=== PATIENT | female | born 1980 | race American Indian/Alaskan Native ===

== ENCOUNTER 2016-12-26 23:05 | Emergency (ER) | payer MEDICAID ==
[2016-12-27 00:31] LABS: Basophils % (Auto) 0.5 % (0.0-1.8); Eosinophils % (Auto) 2.8 % (0.0-4.3); Hematocrit 42.8 % (30.3-42.9); Hemoglobin 13.5 gm/dl (10.1-14.3); Mean Corpuscular HGB Conc 32 % (30-34); Platelet Count 264 K/mm3 (140-440); Red Blood Count 6.24 M/mm3 (3.65-5.03); Red Cell Distribution Width 17.8 % (13.2-15.2); White Blood Count 9.4 K/mm3 (4.5-11.0)
[2016-12-27 00:33] LABS: Mean Corpuscular Hemoglobin 22 pg (28-32); Mean Corpuscular Volume 69 fl (79-97)
[2016-12-27 00:47] LABS: Anion Gap 19 mmol/L; BUN/Creatinine Ratio 12.22; Blood Urea Nitrogen 11 mg/dL (7-17); Calcium 9.3 mg/dL (8.4-10.2); Carbon Dioxide 22 mmol/L (22-30); Glucose 93 mg/dL (65-100); Potassium 4.7 mmol/L (3.6-5.0); Sodium 138 mmol/L (137-145)
[2016-12-27 01:29] LABS: Urine Drugs of Abuse Note Disclamer
--- NOTE | 2016-12-27 01:46 | Emergency Department Report ---
ED Psych HPI - General Chief Complaint: Psych Stated Complaint: POSS OVERDOSE/SUICIDAL/MH EVAL Time Seen by Provider: 12/27/16 01:38 Source: patient Mode of arrival: Ambulatory - History of Present Illness Initial Comments: 36-year-old female with history of depression not on any medication presenting today because of suicidal ideation. Patient's states that she took a Xanax, per EMS 2x1 mg pills prior to arrival. She took her father's medication, she is not prescribed any medications. States that she doesn't want to wake up ever again. History of suicidal attempts. States she took no other medications. Denies any alcohol or drug use. - Related Data Previous Rx's Medication Instructions Recorded Last Taken Type Ferrous Sulfate [Feosol 325 MG tab] 325 mg PO BID #60 tablet 03/31/16 Unknown Rx Ibuprofen [Motrin 800 MG tab] 800 mg PO Q6H PRN #30 tablet 03/31/16 Unknown Rx oxyCODONE /ACETAMINOPHEN [Percocet 1 - 2 tab PO Q4H PRN #30 tablet 03/31/16 Unknown Rx 5/325 mg] Allergies Allergy/AdvReac Type Severity Reaction Status Date / Time bupropion HCl Allergy Unknown Verified 06/16/15 01:18 [From Wellbutrin] cephalexin monohydrate Allergy Hives Verified 01/23/14 21:49 [From Keflex] tramadol HCl [From Ultram] Allergy Rash Verified 01/23/14 21:50 ED Review of Systems ROS: Stated complaint: POSS OVERDOSE/SUICIDAL/MH EVAL Other details as noted in HPI Comment: All other systems reviewed and negative Constitutional: denies: chills, fever Cardiovascular: denies: chest pain Gastrointestinal: denies: abdominal pain, vomiting Genitourinary: denies: dysuria Skin: denies: rash Neurological: denies: headache Psychiatric: anxiety, depression, suicidal thoughts. denies: auditory hallucinations, visual hallucinations ED Past Medical Hx - Past Medical History Previous Medical History?: Yes Hx Hypertension: No Hx Congestive Heart Failure: No Hx Diabetes: No Hx Deep Vein Thrombosis: No Hx Renal Disease: No Hx Sickle Cell Disease: No Hx Seizures: No Hx Psychiatric Treatment: Yes (PTSD) Hx Asthma: Yes (has not used inhaler in a year) Hx COPD: No Hx HIV: No - Surgical History Past Surgical History?: Yes Additional Surgical History: ACL repair Right knee. Hand surgeries. - Social History Smoking Status: Unknown if ever smoked - Medications Home Medications: Home Medications Medication Instructions Recorded Confirmed Last Taken Type Ferrous Sulfate [Feosol 325 MG tab] 325 mg PO BID #60 tablet 03/31/16 Unknown Rx Ibuprofen [Motrin 800 MG tab] 800 mg PO Q6H PRN #30 tablet 03/31/16 Unknown Rx oxyCODONE /ACETAMINOPHEN [Percocet 1 - 2 tab PO Q4H PRN #30 tablet 03/31/16 Unknown Rx 5/325 mg] ED Physical Exam - General Limitations: No Limitations General appearance: alert - Head Head exam: Present: atraumatic - Eye Eye exam: Present: normal appearance - ENT ENT exam: Present: normal exam - Respiratory Respiratory exam: Present: normal lung sounds bilaterally. Absent: respiratory distress - Cardiovascular Cardiovascular Exam: Present: regular rate, normal rhythm - GI/Abdominal GI/Abdominal exam: Present: soft. Absent: distended, tenderness - Extremities Exam Extremities exam: Present: normal inspection - Neurological Exam Neurological exam: Present: alert, oriented X3 - Psychiatric Psychiatric exam: Present: normal affect - Skin Skin exam: Present: intact ED Course Vital Signs 12/27/16 12/27/16 00:44 01:44 Temperature 98.3 F Pulse Rate 86 Respiratory 14 14 Rate Blood Pressure 119/70 [Left] O2 Sat by Pulse 99 98 Oximetry ED Medical Decision Making - Lab Data Result diagrams: 12/27/16 00:08 12/27/16 00:08 - Medical Decision Making Patient is suicidal, we'll place on 1013, Xanax quantity was minimal and she has no respiratory depression and is awake and alert at this time. Labs unremarkable, ua negative, upreg negative Critical care attestation.: If time is entered above; I have spent that time in minutes in the direct care of this critically ill patient, excluding procedure time. ED Disposition Clinical Impression: Suicidal ideation Disposition: DC/TX PSY HOSP/PSY UNIT Is pt being admited?: No Does the pt Need Aspirin: No Condition: Stable Referrals: PRIMARY CARE, [Primary Care Provider] - 3-5 Days Time of Disposition: 02:01
[2016-12-27 02:14] LABS: Bacteria,Urine 1+ /HPF (Negative); Bilirubin,Urine NEG (Negative); Blood,Urine SM (Negative); Ketones,Urine 20 mg/dL (Negative); Leukocyte Esterase,Urine NEG (Negative); Mucus,Urine 2+ /HPF; Nitrite,Urine NEG (Negative); Urobilinogen,Urine < 2.0 mg/dL (<2.0)
--- NOTE | 2016-12-27 12:54 | Consultation ---
History of Present Illness - Reason for Consult Consult date: 12/27/16 Reason for consult: psychiatric evaluation - Chief Complaint Chief complaint: "I don't want to be here" Mrs. Zelaya is a 36 year-old white female seen the emergency department for psychiatric evaluation. She was brought to the emergency department by the police after she reported to family that she did not want to be here. She reports ongoing depression and anxiety. She reports having panic attacks almost daily as well as flashbacks from her child's . She states her anxiety specifically that she does not leave the house. 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 The precipitating event to this emergency department visit was an argument with her child's father. She reports decreased appetite, insomnia, hopeless helpless ideations, and severe anxiety. She was evaluated by psychiatry when she participated in vocational rehabilitation. She was so she has bipolar disorder type II. She has also been diagnosed with posttraumatic stress disorder. She reports a long history of insomnia with medication trials to include Ambien, ZZquil, Seroquel. She does not remember what the Seroquel. She does remember all other medications have been ineffective with the exception of Celexa. Previous medication trials included Zoloft, Wellbutrin, Effexor, and BuSpar for anxiety. She denies homicidal ideation, auditory or visual hallucinations. She denies use of drugs or alcohol. Medications and Allergies Allergies Allergy/AdvReac Type Severity Reaction Status Date / Time bupropion HCl Allergy Unknown Verified 06/16/15 01:18 [From Wellbutrin] cephalexin monohydrate Allergy Hives Verified 01/23/14 21:49 [From Keflex] tramadol HCl [From Ultram] Allergy Rash Verified 01/23/14 21:50 Home Medications Medication Instructions Recorded Confirmed Last Taken Type Ferrous Sulfate [Feosol 325 MG tab] 325 mg PO BID #60 tablet 03/31/16 Unknown Rx Ibuprofen [Motrin 800 MG tab] 800 mg PO Q6H PRN #30 tablet 03/31/16 Unknown Rx oxyCODONE /ACETAMINOPHEN [Percocet 1 - 2 tab PO Q4H PRN #30 tablet 03/31/16 Unknown Rx 5/325 mg] Past psychiatric history - Past Medical History Past Medical History: No medical history Past Surgical History: No surgical history - past Psychiatric treatment and history Psych: Anxiety, Bipolar, Depression psychiatric treatment history: Denies suicide attempt - Social History Social history: lives with family (2 of her children live in [place], one is , she lived with her, ages 9 and 18 months) Mental Status Exam - Vital signs Last Vital Signs Temp 98.3 F 12/27/16 02:51 Pulse 83 12/27/16 02:51 Resp 15 12/27/16 02:51 BP 119/65 12/27/16 02:51 Pulse Ox 98 12/27/16 02:51 - Exam Orientation: time, place, person Affect: depressed, anxious Mood: congruent with affect Thought content: other (SI) Thought Process: Tangential Perceptions: none Speech: normal rate and pattern Concentration: focused Motor activity: normal Level of consciousness: alert Memory: Intact Sleep Symptoms: Insomnia Appetite: decreased Interaction: guarded Results Result Diagrams: 12/27/16 00:08 12/27/16 00:08 Abnormal lab results 12/27/16 Range/Units 00:08 RBC 6.24 H (3.65-5.03) M/mm3 MCV 69 L (79-97) fl MCH 22 L (28-32) pg RDW 17.8 H (13.2-15.2) % Lymph % (Auto) 35.1 H (13.4-35.0) % Orange % (Auto) 8.9 H (0.0-7.3) % All other labs normal. Assessment and Plan Assessment and plan: Impression: Patient presents as risk of harm to herself. Diagnoses include bipolar disorder, PTSD with panic attacks Plan: 1013 and transfer to inpatient psychiatric facility - Psychiatric problem (1) Bipolar II disorder Current Visit: Yes Status: Acute (2) PTSD (post-traumatic stress disorder) Current Visit: Yes Status: Acute
[2016-12-27 20:20] VITALS: BP 112/71
== END 2016-12-27 20:19 ==
LOC: EEVIPCON 23:05 → ED 23:05
DX: R45.851 Suicidal ideations (principal); J45.909 Unspecified asthma, uncomplicated
CPT/HCPCS: 36415; 80048; 80307; 81001; 81025; 85025; 99285; G0480; 80320